=== PATIENT | male | born 1965 ===

== ENCOUNTER 2018-07-21 10:26 | Day surgery (SDC) | payer OTHER ==
[2018-07-21] VITALS (10 sets, daily range): BP systolic 123–140; BP diastolic 72–94
[~2018-07-21] VITALS: Ht 177.8 cm; Wt 88.5 kg
--- NOTE | 2018-07-21 08:54 | Pre-Procedure Note/Attestation ---
Pre-Procedure Note/Attestation Complete Prior to Procedure Planned Procedure: right Procedure Narrative: rt knee scope, lateral and medial meniscectomy and chondroplasty Indications for Procedure Pre-Operative Diagnosis: rt knee medial and lateral meniscus tear Attestation I attest that I discussed the nature of the procedure; its benefits; risks and complications; and alternatives (and the risks and benefits of such alternatives ), prior to the procedure, with the patient (or the patient's legal parts representative). I attest that, if there was a reasonable possibility of needing a blood transfusion, the patient (or the patient's legal parts representative) was given the [facility] standardized written summary, pursuant to the Saroj Yury Blood Safety Act ([place] Health and Safety Code # 1645, as amended). I attest that I re-evaluated the patient just prior to the surgery and that there has been no change in the patient's H&P, except as documented below: NONE Serafin Alicia MD Jul 21, 2018 08:54
[~2018-07-21 10:26] MED LIST: Clindamycin 600mg/D5W 50ml IV ONE; NKM; celeBREX 200mg Cap **SURGERY PATIENTS ONLY ORAL ONE; oxyCONTIN 20mg tab ORAL ONE
--- NOTE | 2018-07-21 10:45 | Anethesia Preoperative Eval ---
Anesthesia Pre-op PMH/ROS General Date of Evaluation: Jul 21, 2018 Anesthesiologist: Gareth ASA Score: ASA 1 Mallampati Score Class I : Soft palate, uvula, fauces, pillars visible Class II: Soft palate, uvula, fauces visible Class III: Soft palate, base of uvula visible Class IV: Only hard plate visible Mallampati Classification: Class II Surgeon: Maral Diagnosis: Right knee torn meniscus Surgical Procedure: Right knee arthroscopoy with lateral and medial meniscectomy Anesthesia History: none Family History: no anesthesia problems Allergies: Coded Allergies: PENICILLINS (Verified Allergy, Intermediate, 07/21/18) FEVER Medications: see eMAR Patient NPO?: Yes NPO Date: Jul 20, 2018 NPO Time: 22:00 Past Medical History Cardiovascular: Denies: HTN, CAD, MS, valve dz, arrhythmia, other Pulmonary: Denies: asthma, COPD, JHON, other Gastrointestinal/Genitourinary: Denies: GERD, CRI, ESRD, other Neurologic/Psychiatric: Denies: dementia, CVA, depression/anxiety, TIA, other Endocrine: Denies: DM, hypothyroidism, steroids, other HEENT: Denies: cataract (L), cataract (R), glaucoma, KARLUK (L), KARLUK (R), other Hematology/Immune: Denies: anemia, DVT, bleeding disorder, other Musculoskeletal/Integumentary: Denies: OA, RA, DJD, DDD, edema, other PSxH Narrative: Right knee arthroscopy Anesthesia Pre-op Phys. Exam Physician Exam see chart Constitutional: NAD Cardiovascular: RRR Respiratory: CTA Airway Exam Mallampati Score: Class II MO: full ROM: full Anesthesia Pre-op A/P Labs see chart Studies Pre-op Studies: EKG - sr Risk Assessment & Plan Assessment: ASA I Plan: GA Status Change Before Surgery: No Pre-Antibiotics Drug: Ancef 2g Given Within 1 Hr of Incision: Yes Phyllis Guerrero MD Jul 21, 2018 10:45
[2018-07-21] MEDS ORDERED: LR 1000ml 1,000 ML IVLG SCH (10:52)
[2018-07-21] MEDS ORDERED: Propofol 200mg/20ml IV ONE (10:59)
[2018-07-21] MEDS ORDERED: Lidocaine 1% MPF 10mg/ml 5ml ONE (10:59)
[2018-07-21] MEDS ORDERED: fentaNYL 100 mcg/2 mL IV ONE (10:59)
[2018-07-21] MEDS ORDERED: Midazolam 2mg/2ml Inj IVP PRN (11:00)
[2018-07-21] MEDS ORDERED: Hydromorphone 0.5mg/0.5ml inj IVP PRN (11:00)
[2018-07-21] MEDS ORDERED: fentaNYL 100 mcg/2 mL IV PRN (11:00)
[2018-07-21] MEDS ORDERED: Ketorolac 30mg Inj IV PRN (11:00)
[2018-07-21] MEDS ORDERED: DiphenhydrAMINE 50mg/ml Inj IVP PRN (11:00)
[2018-07-21] MEDS ORDERED: LORazepam Inj 2mg/ml 1ml IV PRN (11:00)
[2018-07-21] MEDS ORDERED: Midazolam 2mg/2ml Inj ONE (11:00)
[2018-07-21] MEDS ORDERED: celeBREX 200mg Cap **SURGERY PATIENTS ONLY ORAL ONE (11:11)
[2018-07-21] MEDS ORDERED: oxyCONTIN 20mg tab ORAL ONE (11:11)
[2018-07-21 11:28] LABS: ANION GAP 9 mmol/L (5-15); BLOOD UREA NITROGEN 18 mg/dL (7-18); CALCIUM 9.2 MG/DL (8.5-10.1); CARBON DIOXIDE 26 MMOL/L (21-32); CHLORIDE 105 MMOL/L (98-107); CREATININE 1.2 MG/DL (0.55-1.30); POTASSIUM 4.3 MMOL/L (3.5-5.1); SODIUM 140 MMOL/L (136-145)
[2018-07-21] MEDS ORDERED: Norco 5mg/325mg tab ORAL PRN (11:45)
[2018-07-21] MEDS ORDERED: Tylenol #3 tab (300mg/30mg) ORAL PRN (11:45)
[2018-07-21] MEDS ORDERED: HYDROmorphone 1mg/ml Carpuject SUBQ PRN (11:45)
[2018-07-21] MEDS ORDERED: D5 1/2NS 1,000 ML IV SCH (11:45)
[2018-07-21] MEDS ORDERED: Ropivacaine 5mg/ml Vial 30ml INJ ONE (11:46)
[2018-07-21] MEDS ORDERED: LR 1000ml ONE (12:00)
[2018-07-21] MEDS ORDERED: Sterile Water Irrig 1000ml IRRIG ONE (12:00)
[2018-07-21] MEDS ORDERED: NS Irrig 4000ml IRRIG ONE ×2 (12:02)
--- NOTE | 2018-07-21 13:01 | Brief Operative Note ---
Immediate Post Operative Note Operative Note Chief Complaint: rt knee pain Pre-op Diagnosis: rt knee medial and lateral meniscus tear Procedure: rt knee scope, medial and lateral meniscectomy Post-op Diagnosis: same as pre-op Findings: consistent w/pre-op dx studies Surgeon: md clara Pad Hand: wilfredo church Anesthesiologist: md karen Anesthesia: general Specimen: none Complications: none Condition: stable Fluids: ns Estimated Blood Loss: minimal Drains: none Implant(s) used?: No Tanisha Church Jul 21, 2018 13:01
--- NOTE | 2018-07-21 13:04 | Immediate Post-Op Evaluation ---
Immediate Post-Op Evalulation Immediate Post-Op Evalulation Procedure: RIght knee arthroscopy Date of Evaluation: Jul 21, 2018 Time of Evaluation: 13:07 IV Fluids: 600 Blood Products: 0 Estimated Blood Loss: min Urinary Output: 0 Blood Pressure Systolic: 124 Blood Pressure Diastolic: 77 Pulse Rate: 86 Respiratory Rate: 16 O2 Sat by Pulse Oximetry: 98 Temperature (Fahrenheit): 97.4 Pain Score (1-10): 0 Nausea: No Vomiting: No Complications 0 Patient Status: awake, reacts, patent, none Hydration Status: adequate Drug: Clindamycin 600mg Given Within 1 Hr of Incision: Yes Phyllis Guerrero MD Jul 21, 2018 13:04
--- NOTE | 2018-07-21 13:05 | 48 Hour Post Anesthesia Eval ---
Post Anesthesia Evaluation Procedure: RIght knee arthroscopy Date of Evaluation: Jul 21, 2018 Airway: patent Nausea: No Vomiting: No Pain Intensity: 0 Hydration Status: adequate Cardiopulmonary Status: at baseline Mental Status/LOC: patient returned to baseline Post-Anesthesia Complications: 0 Follow-up care needed: ready to discharge Phyllis Guerrero MD Jul 21, 2018 13:05
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
== END 2018-07-21 14:15 | disposition home or self-care (01) ==
LOC: SUR 10:26 → EDSEX 13:45 → SUR 14:15
DX: M23.221 Derangement of posterior horn of medial meniscus due to old tear or injury, right knee (principal); M23.251 Derangement of posterior horn of lateral meniscus due to old tear or injury, right knee; M94.261 Chondromalacia, right knee; Z88.0 Allergy status to penicillin
CPT/HCPCS: 29880; 36415; 80048; J0690; J2250; J2704; J2795; J3010; 94003; 94150